=== PATIENT | female | born 1970 | race Caucasian/White ===

== ENCOUNTER 2019-08-03 08:01 | Day surgery (SDC) | payer OTHER ==
[~2019-08-03] VITALS: Ht 160 cm; Wt 79.5 kg
[~2019-08-03 08:01] MED LIST: EUTHYROX50 MCG PO; FLUO10 PO; MELO7.5 PO; VITAMIN D-32000 UNIT PO
--- NOTE | 2019-08-03 09:16 | NUR ---
08/03/19 0916 Ghislaine Pruitt V NERVE BLOCK DONE WITH DR. VINSON. HR AND O2 MONITORED DURING PROCEDURE; STABLE T/O.
== END 2019-08-03 12:01 | disposition home or self-care (01) ==
LOC: ORSCSDS 08:01
PROVIDERS: Orthopaedic Surgery
PROC: 0LU Tendons, Supplement (ICD-10-PCS; principal; 2019-08-03 09:30)
PROC: 0LS14ZZ Reposition Right Shoulder Tendon, Percutaneous Endoscopic Approach (ICD-10-PCS; principal; 2019-08-03 09:30)
PROC: 0LQ14ZZ Repair Right Shoulder Tendon, Percutaneous Endoscopic Approach (ICD-10-PCS; principal; 2019-08-03 09:30)
PROC: 0RNJ4ZZ Release Right Shoulder Joint, Percutaneous Endoscopic Approach (ICD-10-PCS; principal; 2019-08-03 09:30)
DX: M75.111 Incomplete rotator cuff tear or rupture of right shoulder, not specified as traumatic (principal); M75.31 Calcific tendinitis of right shoulder; M75.41 Impingement syndrome of right shoulder; E03.9 Hypothyroidism, unspecified; F17.210 Nicotine dependence, cigarettes, uncomplicated; Z79.899 Other long term (current) drug therapy
CPT/HCPCS: C1713; J0171; J0690; J1100; J1885; J2001; J2250; J2405; J2704; J2795; J3010; J7120